=== PATIENT | male | born 1950 | race Hispanic/Latino ===

== ENCOUNTER → 2023-12-26 | Outpatient (CLI) | payer MEDICARE ==
[~2023-12-26] MED LIST: EMPA25TA PO; FISH1CAP27 PO; INSU300I SQ; NIFE-79 PO; OLME40TA18 PO; PIOG30TA70 PO; ROSU10TA72 PO
[2023-12-26 11:15] LABS: INR 0.96 (0.85-1.15); PROTHROMBIN TIME 11.4 SEC (9.6-11.6)
[2023-12-31] VITALS (13 sets, daily range): BP systolic 118–134; BP diastolic 65–71; PULSE 60–65; RESP 14–17
== END | disposition home or self-care (01) ==
LOC: LAB 10:01
PROVIDERS: ATTEND Internal Medicine Gastroenterology
DX: K83.1 Obstruction of bile duct (principal); R74.8 Abnormal levels of other serum enzymes; I10 Essential (primary) hypertension
CPT/HCPCS: 36415; 82378; 85610; 86316

== ENCOUNTER 2023-12-31 08:00 | Day surgery (SDC) | payer MEDICARE ==
[~2023-12-31] VITALS: Ht 182.9 cm; Wt 82.1 kg
[~2023-12-31 08:00] MED LIST changes: +IOHEXOL-350 50ML VIAL IV ONE; +ROSU10TA28 PO; -ROSU10TA72 PO
[2023-12-31 09:15] VITALS: BP 128/73; PULSE 67; RESP 18
[2023-12-31] MEDS ORDERED: FENTANYL CITRATE PF 50 MCG/1 ML 2ML VIAL ONE (10:41)
[2023-12-31] MEDS ORDERED: PROPOFOL 10 MG/ML 20ML VIAL IV ONE (10:42)
[2023-12-31] MEDS ORDERED: SUCCINYLCHOLINE CHLORIDE 20 MG/ML 10 ML VIAL ONE (10:42)
[2023-12-31] MEDS: INDOMETHACIN 100 MG SUPP.RECT RC ONE (11:27)
[2023-12-31] MEDS: 0.9%NACL 1000ML 1,000 ML IV ONE (11:30)
[2023-12-31 12:55] VITALS: BP 144/70; PULSE 63; RESP 15
[2023-12-31 13:10] VITALS: BP 138/75; PULSE 61; RESP 15
[2023-12-31 13:25] VITALS: BP 134/76; PULSE 64; RESP 16
== END 2023-12-31 13:35 | disposition home or self-care (01) ==
LOC: ENDO 08:00 → DAH 08:01 → ENDO 13:35
PROVIDERS: ATTEND Internal Medicine Gastroenterology
DX: R93.5 Abnormal findings on diagnostic imaging of other abdominal regions, including retroperitoneum (principal); R74.8 Abnormal levels of other serum enzymes; K83.1 Obstruction of bile duct; K86.89 Other specified diseases of pancreas; K83.8 Other specified diseases of biliary tract; I10 Essential (primary) hypertension; M19.90 Unspecified osteoarthritis, unspecified site; R63.4 Abnormal weight loss; E11.9 Type 2 diabetes mellitus without complications; E78.5 Hyperlipidemia, unspecified; Z98.890 Other specified postprocedural states; Z90.89 Acquired absence of other organs; Z90.49 Acquired absence of other specified parts of digestive tract; Z87.891 Personal history of nicotine dependence; Z72.89 Other problems related to lifestyle; Z68.27 Body mass index [BMI] 27.0-27.9, adult
CPT/HCPCS: 43274; 82948 ×2; 88305; 88307; 74328; 43264; 43238; 88160; J3010; J0330; J7030 ×2; J2704; Q9967; A4649; C1876; A4620; A4215 ×3; A4223; A4657; A7002; A4222; A4221; A4663; A4606; C1769; C1773; 74330; J3490